=== PATIENT | female | born 1995 | race Caucasian/White ===

== ENCOUNTER 2017-06-25 08:49 | Inpatient (IN) | payer OTHER ==
[2017-06-25] MEDS ORDERED: Sodium Chloride 0.9% 10 ML Syringe FLUSH PRN (09:12)
[2017-06-25] MEDS ORDERED: Sodium Chloride 0.9% 2.5 ML Syringe FLUSH PRN (09:12)
[2017-06-25] MEDS ORDERED: Citric Acid/Sodium Citrate Solution 30 ML Cup PO SCH (09:15)
[2017-06-25] MEDS ORDERED: Oxytocin/0.9 % Sodium Chloride 30 UNIT/500 ML BAG IV SCH (09:15)
[2017-06-25] MEDS ORDERED: Octyl 2-Cyanoacrylate 1 Tube ONE (10:07)
[2017-06-25] MEDS: Lactated Ringers 1,000 ML IV SCH ×4 (10:32→21:28)
--- NOTE | 2017-06-25 10:42 | PCM.PREANE ---
Preanesthetic Assessment - Procedure Proposed Procedure: Repeat - Anesthesia/Transfusion/Family Hx Anesthesia History: Prior Anesthesia Without Reaction (last under epidural - pt denies problems) Family History of Anesthesia Reaction: No Transfusion History: No Prior Transfusion(s) Intubation History: Unknown - Review of Systems General: No Symptoms Pulmonary: No Symptoms Cardiovascular: No Symptoms Gastrointestinal: No Symptoms Neurological: No Symptoms Other: Reports: Anxiety (appears nervous/quiet) - Physical Assessment NPO Status Date: 06/25/17 NPO Status Time: 00:00 Pulse: 86 O2 Sat by Pulse Oximetry: 99 Blood Pressure: 133/80 Height: 5 ft 5 in Weight: 203 lb ASA Class: 2 Mental Status: Alert & Oriented x3 Airway Class: Mallampati = 2 Dentition: Reports: Normal Dentition Thyro-Mental Finger Breadths: 3 Mouth Opening Finger Breadths: 3 ROM/Head Extension: Full Lungs: Clear to Auscultation, Normal Respiratory Effort Cardiovascular: Regular Rate, Regular Rhythm - Lab Values: Laboratory Last Values WBC 15.20 K/uL (4.0-11.0) H 06/25/17 09:34 RBC 4.06 M/uL (4.30-5.90) L 06/25/17 09:34 Hgb 10.9 g/dL (12.0-16.0) L 06/25/17 09:34 Hct 33.7 % (36.0-46.0) L 06/25/17 09:34 MCV 83.0 fL (80.0-98.0) 06/25/17 09:34 MCH 26.8 pg (27.0-32.0) L 06/25/17 09:34 MCHC 32.3 g/dL (31.0-37.0) 06/25/17 09:34 RDW Std Deviation 49.6 fl (28.0-62.0) 06/25/17 09:34 RDW Coeff of Xi 17 % (11.0-15.0) H 06/25/17 09:34 Plt Count 209 K/uL (150-400) 06/25/17 09:34 MPV 10.30 fL (7.40-12.00) 06/25/17 09:34 Nucleated RBC % 0.0 /100WBC 06/25/17 09:34 Nucleated RBCs # 0 K/uL 06/25/17 09:34 - Allergies Allergies/Adverse Reactions: Allergies Allergy/AdvReac Type Severity Reaction Status Date / Time No Known Allergies Allergy Verified 06/21/17 09:41 - Blood Blood Available: No Product(s) Available: None (T&S pending) - Acknowledgements Anesthesia Type Planned: Spinal Pt an Appropriate Candidate for the Planned Anesthesia: Yes Alternatives and Risks of Anesthesia Discussed w Pt/Guardian: Yes Pt/Guardian Understands and Agrees with Anesthesia Plan: Yes PreAnesthesia Questionnaire HEENT History: Reports: None Other HEENT History: wears glasses Cardiovascular History: Reports: None Respiratory History: Reports: None Gastrointestinal History: Reports: None Genitourinary History: Reports: None 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: Musculoskeletal History: Reports: None Neurological History: Reports: None Psychiatric History: Reports: None Endocrine/Metabolic History: Reports: Obesity/BMI 30+ Hematologic History: Reports: None Immunologic History: Reports: None Dermatologic History: Reports: None - Infectious Disease History Infectious Disease History: Reports: Chicken Pox - Past Surgical History HEENT Surgical History: Reports: Oral Surgery Other HEENT Surgeries/Procedures: wisdom teeth removed Female Surgical History: Reports: Section - SUBSTANCE USE Smoking Status *Q: Never Smoker Tobacco Use Within Last Twelve Months: No Second Hand Smoke Exposure: No Recreational Drug Use History: No - HOME MEDS Home Medications: Home Meds PNV95/Ferrous Fumarate/FA [ Tablet] 1 tab PO DAILY 06/21/17 [History] - CURRENT (IN HOUSE) MEDS Current Meds: Current Medications Citric Acid/Sodium Citrate (Bicitra Solution) 30 ml PO .ONCE JOSE ALBERTO Lactated Ringer's (Ringers, Lactated) 1,000 mls @ 500 mls/hr IV .BOLUS JOSE ALBERTO Last Admin: 06/25/17 10:33 Dose: 500 mls/hr Oxytocin/Sodium Chloride (Oxytocin 30 Unit/500 Ml-Ns) 30 unit in 500 mls @ 250 mls/hr IV TITRATE JOSE ALBERTO Sodium Chloride (Saline Flush) 10 ml FLUSH ASDIRECTED PRN PRN Reason: Keep Vein Open Sodium Chloride (Saline Flush) 2.5 ml FLUSH ASDIRECTED PRN PRN Reason: Keep Vein Open Discontinued Medications Octyl Cyanoacrylate (Dermabond Advance) Confirm Administered Dose 1 applic .ROUTE .STK-MED ONE Stop: 06/25/17 10:08
--- NOTE | 2017-06-25 10:51 | PCM.LDHP ---
L&D History of Present Illness - General Date of Service: 06/25/17 Admit Problem/Dx: Patient Status Order with Admit Dx/Problem 06/25/17 09:06 Patient Status [ADT] Routine Admission Diagnosis/Problem Admission Diagnosis/Problem - planned Source of Information: Patient History Limitations: Reports: No Limitations - History of Present Illness Improves with: Reports: None Worsens with: Reports: None Associated Symptoms: Reports: N - Related Data Allergies/Adverse Reactions: Allergies Allergy/AdvReac Type Severity Reaction Status Date / Time No Known Allergies Allergy Verified 06/21/17 09:41 Home Medications: Home Meds PNV95/Ferrous Fumarate/FA [ Tablet] 1 tab PO DAILY 06/21/17 [History] Past Medical History HEENT History: Reports: None Other HEENT History: wears glasses Cardiovascular History: Reports: None Respiratory History: Reports: None Gastrointestinal History: Reports: None Genitourinary History: Reports: None [employer] MAN History: Reports: Musculoskeletal History: Reports: None Neurological History: Reports: None Psychiatric History: Reports: None Endocrine/Metabolic History: Reports: Obesity/BMI 30+ Hematologic History: Reports: None Immunologic History: Reports: None Dermatologic History: Reports: None - Infectious Disease History Infectious Disease History: Reports: Chicken Pox - Past Surgical History HEENT Surgical History: Reports: Oral Surgery Other HEENT Surgeries/Procedures: wisdom teeth removed Female Surgical History: Reports: Section Social & Family History - Family History Family Medical History: Noncontributory HEENT: Reports: Glaucoma, Impaired Vision OBGYN: Reports: Neurological: Reports: Seizure, Other (See Below) Other Neurological Family History: Mother of patient hit her head as a teenager and developed seizure disorder. - Tobacco Use Smoking Status *Q: Never Smoker Second Hand Smoke Exposure: No - Caffeine Use Caffeine Use: Reports: Coffee - Recreational Drug Use Recreational Drug Use: No Drug Use in Last 12 Months: No H&P Review of Systems - Review of Systems: Review Of Systems: See Below General: Reports: No Symptoms HEENT: Reports: No Symptoms Pulmonary: Reports: No Symptoms Cardiovascular: Reports: No Symptoms Gastrointestinal: Reports: No Symptoms Genitourinary: Reports: No Symptoms Musculoskeletal: Reports: No Symptoms Skin: Reports: No Symptoms Psychiatric: Reports: No Symptoms Neurological: Reports: No Symptoms Hematologic/Lymphatic: Reports: No Symptoms Immunologic: Reports: No Symptoms L&D Exam - Exam Exam: See Below - Vital Signs Vital Signs: Last Vital Signs Temp Pulse 86 06/25/17 10:42 Resp BP 133/80 06/25/17 10:42 Pulse Ox 99 06/25/17 10:42 Weight: 92.079 kg - OB Specific Fundal Height In cm: 39 Contraction Intensity: Mild Movement: Active Heart Tones: Present Presentation: Vertex - Exam General: Alert, Oriented HEENT: PERRLA, Conjunctiva Clear, EACs Clear, EOMI, Hearing Intact, Mucosa Moist & Sonterra, Nares Patent, Normal Nasal Septum, Posterior Pharynx Clear, TMs Clear Neck: Supple, Trachea Midline Lungs: Clear to Auscultation, Normal Respiratory Effort Cardiovascular: Regular Rate, Regular Rhythm GI/Abdominal Exam: Normal Bowel Sounds, Soft, Non-Tender, No Organomegaly, No Distention, No Abnormal Bruit, No Mass, Pelvis Stable Rectal Exam: Normal Exam, Normal Rectal Tone Genitourinary: Normal external exam, Normal bimanual exam, Normal speculum exam Back Exam: Normal Inspection, Full Range of Motion Extremities: Normal Inspection, Normal Range of Motion, Non-Tender, No Pedal Edema, Normal Capillary Refill Skin: Warm, Dry, Intact Neurological: Cranial Nerves Intact, Reflexes Equal Bilateral Psychiatric: Alert, Normal Affect, Normal Mood - Patient Data Lab Results Last 24 hrs: Laboratory Results - last 24 hr 06/25/17 Range/Units 09:34 WBC 15.20 H (4.0-11.0) K/uL RBC 4.06 L (4.30-5.90) M/uL Hgb 10.9 L (12.0-16.0) g/dL Hct 33.7 L (36.0-46.0) % MCV 83.0 (80.0-98.0) fL MCH 26.8 L (27.0-32.0) pg MCHC 32.3 (31.0-37.0) g/dL RDW Std Deviation 49.6 (28.0-62.0) fl RDW Coeff of Xi 17 H (11.0-15.0) % Plt Count 209 (150-400) K/uL MPV 10.30 (7.40-12.00) fL Nucleated RBC % 0.0 /100WBC Nucleated RBCs # 0 K/uL Result Diagrams: 06/25/17 09:34 Problem List Initiated/Reviewed/Updated: Yes Orders Last 24hrs: Active Orders 24 hr Category Date Time Status Patient Status [ADT] Routine ADT 06/25/17 09:06 Active Non Stress Test [RC] PER UNIT ROUTINE Care 06/25/17 09:20 Active Notify Provider Vital Signs [RC] PRN Care 06/25/17 09:06 Active Procedure Site Prep Instruct [RC] ASDIRECTED Care 06/25/17 09:20 Active Up ad Mirta [RC] ASDIRECTED Care 06/25/17 09:20 Active Verify Patient Consent Obtain [RC] ASDIRECTED Care 06/25/17 09:06 Active Vital Signs [RC] PER UNIT ROUTINE Care 06/25/17 09:20 Active TYPE AND SCREEN [BBK] Routine Lab 06/25/17 09:34 Received Citric Acid/Sodium Citrate [Bicitra Solution] Med 06/25/17 09:15 Active 30 ml PO .ONCE Lactated Ringers [Ringers, Lactated] 1,000 ml Med 06/25/17 09:15 Active IV .BOLUS Oxytocin/0.9 % Sodium Chloride [Oxytocin 30 Unit/500 ML Med 06/25/17 09:15 Active -NS] 30 unit in 500 ml IV TITRATE Sodium Chloride 0.9% [Saline Flush] Med 06/25/17 09:12 Active 10 ml FLUSH ASDIRECTED PRN Sodium Chloride 0.9% [Saline Flush] Med 06/25/17 09:12 Active 2.5 ml FLUSH ASDIRECTED PRN Peripheral IV Insertion Adult [OM.PC] Routine Oth 06/25/17 09:20 Ordered Schedule Procedure [COMM] Per Unit Routine Oth 06/25/17 09:20 Ordered Resuscitation Status Routine Resus Stat 06/25/17 09:12 Ordered Medication Orders Citric Acid/Sodium Citrate (Bicitra Solution) 30 ml PO .ONCE JOSE ALBERTO Lactated Ringer's (Ringers, Lactated) 1,000 mls @ 500 mls/hr IV .BOLUS JOSE ALBERTO Last Admin: 06/25/17 10:33 Dose: 500 mls/hr Infusion: 06/25/17 10:33 Dose: 500 mls/hr Admin: 06/25/17 10:32 Dose: 500 mls/hr Oxytocin/Sodium Chloride (Oxytocin 30 Unit/500 Ml-Ns) 30 unit in 500 mls @ 250 mls/hr IV TITRATE JOSE ALBERTO Sodium Chloride (Saline Flush) 10 ml FLUSH ASDIRECTED PRN PRN Reason: Keep Vein Open Sodium Chloride (Saline Flush) 2.5 ml FLUSH ASDIRECTED PRN PRN Reason: Keep Vein Open Assessment/Plan Comment:: Intrauterine 39+4 she is admitted for elective repeat section
[2017-06-25] MEDS ORDERED: Sodium Chloride 0.9% 20 ML ONE (11:28)
[2017-06-25] MEDS ORDERED: Oxytocin 10 Units/1 ML SDV ONE (11:28)
[2017-06-25] MEDS ORDERED: Ondansetron 4 MG/2 ML SDV ONE (11:28)
[2017-06-25] MEDS ORDERED: ceFAZolin 1 GM Vial ONE (11:28)
[2017-06-25] MEDS ORDERED: Morphine PF 10 MG/10 ML SDV ONE (11:35)
[2017-06-25] MEDS ORDERED: ceFAZolin 2 GM in Premix Bag 1 BAG IV ONE (12:00)
[2017-06-25] MEDS ORDERED: ePHEDrine 50 MG/ML SDV ONE (12:12)
[2017-06-25] MEDS ORDERED: Phenylephrine 1% 10 MG/ML SDV ONE (12:13)
[2017-06-25] MEDS ORDERED: Nalbuphine 10 MG/1 ML Vial IVPUSH PRN (13:00)
[2017-06-25] MEDS ORDERED: diphenhydrAMINE 50 MG/ML SDV IVPUSH PRN ×2 (13:00→13:04)
[2017-06-25] MEDS ORDERED: Naloxone 0.4 MG/ML Syringe IVPUSH PRN (13:00)
[2017-06-25] MEDS ORDERED: fentaNYL 100 MCG/2 ML SDV IVPUSH PRN (13:00)
[2017-06-25] MEDS ORDERED: Ondansetron 4 MG/2 ML SDV IV PRN (13:04)
[2017-06-25] MEDS ORDERED: Lanolin 100% Cream 7 GM Tube TOP PRN (13:04)
[2017-06-25] MEDS ORDERED: Acetaminophen/oxyCODONE 325-5 MG Tab PO PRN ×2 (13:04)
[2017-06-25] MEDS ORDERED: Bisacodyl 10 MG Supp RECTAL PRN (13:04)
--- NOTE | 2017-06-25 13:08 | PCM.OPNOTE ---
- General Post-Op/Procedure Note Date of Surgery/Procedure: 06/25/17 Operative Procedure(s): Repeat C/Section. Pre Op Diagnosis: IUP 39+4 pervious C/section Post-Op Diagnosis: Same Anesthesia Technique: Spinal Primary Surgeon: Donato Muñoz Rice Field Worker: Shana Winters Complications: None Condition: Good Free Text/Narrative:: Intake & Output 06/24/17 06/25/17 06/25/17 22:59 06:59 14:59 Output Total 100 Balance -100
--- NOTE | 2017-06-25 13:27 | PCM.POSTAN ---
POST ANESTHESIA ASSESSMENT - MENTAL STATUS Mental Status: Alert, Oriented - VITAL SIGNS Blood Pressure: 95/51 - RESPIRATORY Respiratory Status: Respiratory Rate WNL, Airway Patent, O2 Saturation Stable - CARDIOVASCULAR CV Status: Pulse Rate WNL, Blood Pressure Stable - GASTROINTESTINAL GI Status: No Symptoms - PAIN Pain Score: 0 (spinal still intact) - POST OP HYDRATION Hydration Status: Adequate & Stable
[2017-06-25] MEDS: Ketorolac 30 MG/ML SDV IVPUSH SCH ×2 (13:35→19:25)
--- NOTE | 2017-06-25 14:17 | OR ---
SURGEON: Donato Muñoz MD DATE OF PROCEDURE: 06/25/2017 PREOPERATIVE DIAGNOSIS: Intrauterine at 39+ four, previous section, admitted for elective repeat section. POSTOPERATIVE DIAGNOSIS: Intrauterine at 39+ four, previous section, admitted for elective repeat section. OPERATION PERFORMED: Repeat low transverse section. MEMBER CERTIFICATION MANAGER: Shana Winters CNM. ANESTHESIA: Spinal, Mr. Evangelista Kiser. ESTIMATED BLOOD LOSS: 700 mL. COMPLICATIONS: None. FINDINGS: Male fetus. score reported to be 7 and 9. Normal uterus, tubes, and ovaries. INDICATIONS FOR SURGERY: This patient had a previous section. She is term. She is admitted for elective repeat section. PROCEDURE IN DETAIL: The patient was brought to the OR, properly identified, and after adequate level of spinal anesthesia, the patient was prepped and draped in sterile fashion as usual. Cuevas catheter was inserted and time-out was taken, and then low transverse Pfannenstiel skin incision was done through the old scar of the rectus. The Heron's fascia and rectus fascia were opened in direction of the incision. The 2 recti muscles were and peritoneal cavity was entered. Bladder flap was raised in the usual manner pushing the bladder away from the lower uterine segment. Low transverse uterine incision was done and extended manually with the hand. Fetus was in a vertex position, delivered without any problem, cried immediately. Later on, score reported to be 7 and 9. The weight was not available. The placenta delivered spontaneous, complete, and intact and repair of the lower uterine segment was done with 2-0 Vicryl continuous interlocking in 2 layers. Reperitonealization done with 3-0 Vicryl continuous. Inspection of the incision of the lower uterine segment shows no oozing, no bleeding. The peritoneal cavity evacuated completely from all blood and blood clot and closed with 3-0 Vicryl continuous, and the rectus fascia was closed with a #1 PDS double strand continuous, the Heron's fascia with 3-0 Vicryl continuous, and the skin closed with 3-0 Vicryl on a Maikol needle in a subcuticular fashion. Instrument and sponge count was correct. The patient tolerated the procedure well, went to recovery room in stable general condition. VLAD / CHAYITO /[id number]
[2017-06-25] MEDS: Docusate Sodium 100 MG Cap PO SCH (20:11)
[2017-06-26] MEDS: Ketorolac 30 MG/ML SDV IVPUSH SCH ×3 (01:11→12:50)
[2017-06-26] MEDS: Lactated Ringers 1,000 ML IV SCH (03:38)
--- NOTE | 2017-06-26 07:20 | PCM48HPAN ---
Post Anesthesia Note - EVALUATION WITHIN 48HRS OF ANESTHETIC Vital Signs in Normal Range: Yes Patient Participated in Evaluation: Yes Respiratory Function Stable: Yes Airway Patent: Yes Cardiovascular Function Stable: Yes Hydration Status Stable: Yes Pain Control Satisfactory: Yes Nausea and Vomiting Control Satisfactory: Yes (episode of nausea overnight) Mental Status Recovered: Yes - COMMENTS/OBSERVATIONS Free Text/Narrative:: No anesthesia complications.
--- NOTE | 2017-06-26 08:14 | PCM.PNPP ---
- General Info Date of Service: 06/26/17 Admission Dx/Problem (Free Text): Patient Status Order with Admit Dx/Problem 06/25/17 09:06 Patient Status [ADT] Routine Admission Diagnosis/Problem Admission Diagnosis/Problem - planned Functional Status: Reports: Pain Controlled, Tolerating Diet, Ambulating - Review of Systems General: Reports: No Symptoms HEENT: Reports: No Symptoms Pulmonary: Reports: No Symptoms Cardiovascular: Reports: No Symptoms Gastrointestinal: Reports: No Symptoms Genitourinary: Reports: No Symptoms Musculoskeletal: Reports: No Symptoms Skin: Reports: No Symptoms Neurological: Reports: No Symptoms Psychiatric: Reports: No Symptoms - Patient Data Vital Signs - Most Recent: Last Vital Signs Temp 36.6 C 06/26/17 04:00 Pulse 97 06/26/17 04:00 Resp 16 06/26/17 06:00 BP 113/61 06/26/17 04:00 Pulse Ox 95 06/26/17 06:00 Weight - Most Recent: 92.079 kg I&O - Last 24 Hours: Intake & Output 06/25/17 06/26/17 06/26/17 22:59 06:59 14:59 Intake Total 1667 Output Total 500 250 Balance -500 1417 Lab Results - Last 24 Hours: Laboratory Results - last 24 hr 06/25/17 06/25/17 06/26/17 Range/Units 09:34 09:34 05:24 WBC 15.20 H (4.0-11.0) K/uL RBC 4.06 L (4.30-5.90) M/uL Hgb 10.9 L 8.6 L (12.0-16.0) g/dL Hct 33.7 L 27.2 L (36.0-46.0) % MCV 83.0 (80.0-98.0) fL MCH 26.8 L (27.0-32.0) pg MCHC 32.3 (31.0-37.0) g/dL RDW Std Deviation 49.6 (28.0-62.0) fl RDW Coeff of Xi 17 H (11.0-15.0) % Plt Count 209 (150-400) K/uL MPV 10.30 (7.40-12.00) fL Nucleated RBC % 0.0 /100WBC Nucleated RBCs # 0 K/uL Blood Type A POSITIVE Antibody Screen NEGATIVE Med Orders - Current: Current Medications Bisacodyl (Dulcolax) 10 mg RECTAL .ONCE PRN PRN Reason: Constipation Citric Acid/Sodium Citrate (Bicitra Solution) 30 ml PO .ONCE [facility] Last Admin: 06/25/17 11:50 Dose: 30 ml Diphenhydramine HCl (Benadryl) 25 mg IVPUSH Q4H PRN PRN Reason: Itching Stop: 06/26/17 13:00 Diphenhydramine HCl (Benadryl) 25 mg IVPUSH Q6H PRN PRN Reason: Itching or Nausea Docusate Sodium (Colace) 100 mg PO BID [facility] Last Admin: 06/25/17 20:11 Dose: 100 mg Emollient Ointment (Lansinoh Hpa) 0 gm TOP ASDIRECTED PRN PRN Reason: Sore Nipples Fentanyl (Sublimaze) 50 mcg IVPUSH Q45M PRN PRN Reason: Pain (severe 7-10) Stop: 06/26/17 13:01 Lactated Ringer's (Ringers, Lactated) 1,000 mls @ 500 mls/hr IV .BOLUS [facility] Last Admin: 06/25/17 11:50 Dose: 125 mls/hr Oxytocin/Sodium Chloride (Oxytocin 30 Unit/500 Ml-Ns) 30 unit in 500 mls @ 250 mls/hr IV TITRATE [facility] Lactated Ringer's (Ringers, Lactated) 1,000 mls @ 125 mls/hr IV ASDIRECTED [facility] Last Admin: 06/26/17 03:38 Dose: 125 mls/hr Ibuprofen (Motrin) 800 mg PO Q8H PRN PRN Reason: mild pain or fever Ketorolac Tromethamine (Toradol) 30 mg IVPUSH Q6H [facility] Stop: 06/26/17 13:16 Last Admin: 06/26/17 07:08 Dose: 30 mg Nalbuphine HCl (Nubain) 5 mg IVPUSH Q3H PRN PRN Reason: Pruritis Stop: 06/26/17 13:00 Naloxone HCl (Narcan) 0.1 mg IVPUSH ONETIME PRN PRN Reason: Respiratory Depression Stop: 06/26/17 13:01 Ondansetron HCl (Zofran) 4 mg IV Q4H PRN PRN Reason: Nausea/Vomiting Last Admin: 06/25/17 18:51 Dose: 4 mg Oxycodone/Acetaminophen (Percocet 325-5 Mg) 1 tab PO Q4H PRN PRN Reason: Pain (moderate 4-6) Oxycodone/Acetaminophen (Percocet 325-5 Mg) 2 tab PO Q4H PRN PRN Reason: Pain (moderate 4-6) Sodium Chloride (Saline Flush) 10 ml FLUSH ASDIRECTED PRN PRN Reason: Keep Vein Open Sodium Chloride (Saline Flush) 2.5 ml FLUSH ASDIRECTED PRN PRN Reason: Keep Vein Open Discontinued Medications Cefazolin Sodium (Ancef) Confirm Administered Dose 2 gm .ROUTE .STK-MED ONE Stop: 06/25/17 11:29 Ephedrine Sulfate (Ephedrine Sulfate) Confirm Administered Dose 50 mg .ROUTE .STK-MED ONE Stop: 06/25/17 12:13 Cefazolin Sodium/Dextrose 2 gm (/ Premix) 50 mls @ 100 mls/hr IV ONETIME ONE Stop: 06/25/17 12:29 Last Admin: 06/25/17 22:45 Dose: Not Given Sodium Chloride (Normal Saline) Confirm Administered Dose 20 mls @ as directed .ROUTE .STK-MED ONE Stop: 06/25/17 11:29 Morphine Sulfate (Duramorph Pf) Confirm Administered Dose 10 mg .ROUTE .STK-MED ONE Stop: 06/25/17 11:36 Octyl Cyanoacrylate (Dermabond Advance) Confirm Administered Dose 1 applic .ROUTE .STK-MED ONE Stop: 06/25/17 10:08 Ondansetron HCl (Zofran) Confirm Administered Dose 4 mg .ROUTE .STK-MED ONE Stop: 06/25/17 11:29 Oxytocin (Pitocin) Confirm Administered Dose 20 unit .ROUTE .STK-MED ONE Stop: 06/25/17 11:29 Phenylephrine HCl (Ganga-Synephrine) Confirm Administered Dose 10 mg .ROUTE .STK- MED ONE Stop: 06/25/17 12:14 - Interaction Disposition, : [place] to Nursery Interaction: Unable to Hold Infant at this Time Feeding: Bottle Fed Infant Support Person: Significant Other - Recovery Exam Fundal Tone: Firm Fundal Level: 1 Fingerbreadths Below Umbilicus Fundal Placement: Midline Lochia Amount: Scant Lochia Color: Rubra/Red Bladder Status: Indwelling Catheter in Place Urinary Elimination: Indwelling Catheter - Exam General: Alert, Oriented, Cooperative, No Acute Distress Lungs: Clear to Auscultation, Normal Respiratory Effort Cardiovascular: Regular Rate, Regular Rhythm, No Murmurs GI/Abdominal Exam: Soft Extremities: Normal Range of Motion, Non-Tender, No Pedal Edema, Normal Capillary Refill Skin: Warm, Dry, Intact Wound/Incisions: Dressing Dry and Intact Neurological: No New Focal Deficit, Normal Speech, Normal Tone Psy/Mental Status: Alert, Normal Affect, Normal Mood - Problem List & Annotations (1) Status post delivery SNOMED Code(s): 668523394 Code(s): Z98.891 - HISTORY OF UTERINE SCAR FROM PREVIOUS SURGERY Status: Acute Priority: High Current Visit: Yes - Problem List Review Problem List Initiated/Reviewed/Updated: Yes - Assessment Assessment:: PP day 1 VSS, AF, lochia small, dressing intact no drainage noted, Stable - Plan Plan:: Intrauterine 39+4 she is admitted for elective repeat section PP day 1 continue pp plan of care
--- NOTE | 2017-06-26 08:58 | PCM.SURGPN ---
- General Info POD#: 1 Functional Status: Reports: Pain Controlled - Review of Systems General: Reports: No Symptoms HEENT: Reports: No Symptoms Pulmonary: Reports: No Symptoms Cardiovascular: Reports: No Symptoms Gastrointestinal: Reports: No Symptoms Genitourinary: Reports: No Symptoms Musculoskeletal: Reports: No Symptoms Skin: Reports: No Symptoms Neurological: Reports: No Symptoms Psychiatric: Reports: No Symptoms - Patient Data Vitals - Most Recent: Last Vital Signs Temp 36.6 C 06/26/17 04:00 Pulse 97 06/26/17 04:00 Resp 16 06/26/17 06:00 BP 113/61 06/26/17 04:00 Pulse Ox 95 06/26/17 06:00 Weight - Most Recent: 92.079 kg I&O - Last 24 Hours: Intake & Output 06/25/17 06/26/17 06/26/17 22:59 06:59 14:59 Intake Total 1667 Output Total 500 250 Balance -500 1417 Lab Results Last 24 Hrs: Laboratory Results - last 24 hr 06/25/17 06/25/17 06/26/17 Range/Units 09:34 09:34 05:24 WBC 15.20 H (4.0-11.0) K/uL RBC 4.06 L (4.30-5.90) M/uL Hgb 10.9 L 8.6 L (12.0-16.0) g/dL Hct 33.7 L 27.2 L (36.0-46.0) % MCV 83.0 (80.0-98.0) fL MCH 26.8 L (27.0-32.0) pg MCHC 32.3 (31.0-37.0) g/dL RDW Std Deviation 49.6 (28.0-62.0) fl RDW Coeff of Xi 17 H (11.0-15.0) % Plt Count 209 (150-400) K/uL MPV 10.30 (7.40-12.00) fL Nucleated RBC % 0.0 /100WBC Nucleated RBCs # 0 K/uL Blood Type A POSITIVE Antibody Screen NEGATIVE Med Orders - Current: Current Medications Bisacodyl (Dulcolax) 10 mg RECTAL .ONCE PRN PRN Reason: Constipation Citric Acid/Sodium Citrate (Bicitra Solution) 30 ml PO .ONCE JOSE ALBERTO Last Admin: 06/25/17 11:50 Dose: 30 ml Diphenhydramine HCl (Benadryl) 25 mg IVPUSH Q4H PRN PRN Reason: Itching Stop: 06/26/17 13:00 Diphenhydramine HCl (Benadryl) 25 mg IVPUSH Q6H PRN PRN Reason: Itching or Nausea Docusate Sodium (Colace) 100 mg PO BID [facility] Last Admin: 06/25/17 20:11 Dose: 100 mg Emollient Ointment (Lansinoh Hpa) 0 gm TOP ASDIRECTED PRN PRN Reason: Sore Nipples Fentanyl (Sublimaze) 50 mcg IVPUSH Q45M PRN PRN Reason: Pain (severe 7-10) Stop: 06/26/17 13:01 Lactated Ringer's (Ringers, Lactated) 1,000 mls @ 500 mls/hr IV .BOLUS [facility] Last Admin: 06/25/17 11:50 Dose: 125 mls/hr Oxytocin/Sodium Chloride (Oxytocin 30 Unit/500 Ml-Ns) 30 unit in 500 mls @ 250 mls/hr IV TITRATE [facility] Lactated Ringer's (Ringers, Lactated) 1,000 mls @ 125 mls/hr IV ASDIRECTED [facility] Last Admin: 06/26/17 03:38 Dose: 125 mls/hr Ibuprofen (Motrin) 800 mg PO Q8H PRN PRN Reason: mild pain or fever Ketorolac Tromethamine (Toradol) 30 mg IVPUSH Q6H [facility] Stop: 06/26/17 13:16 Last Admin: 06/26/17 07:08 Dose: 30 mg Nalbuphine HCl (Nubain) 5 mg IVPUSH Q3H PRN PRN Reason: Pruritis Stop: 06/26/17 13:00 Naloxone HCl (Narcan) 0.1 mg IVPUSH ONETIME PRN PRN Reason: Respiratory Depression Stop: 06/26/17 13:01 Ondansetron HCl (Zofran) 4 mg IV Q4H PRN PRN Reason: Nausea/Vomiting Last Admin: 06/25/17 18:51 Dose: 4 mg Oxycodone/Acetaminophen (Percocet 325-5 Mg) 1 tab PO Q4H PRN PRN Reason: Pain (moderate 4-6) Oxycodone/Acetaminophen (Percocet 325-5 Mg) 2 tab PO Q4H PRN PRN Reason: Pain (moderate 4-6) Sodium Chloride (Saline Flush) 10 ml FLUSH ASDIRECTED PRN PRN Reason: Keep Vein Open Sodium Chloride (Saline Flush) 2.5 ml FLUSH ASDIRECTED PRN PRN Reason: Keep Vein Open Discontinued Medications Cefazolin Sodium (Ancef) Confirm Administered Dose 2 gm .ROUTE .STK-MED ONE Stop: 06/25/17 11:29 Ephedrine Sulfate (Ephedrine Sulfate) Confirm Administered Dose 50 mg .ROUTE .STK-MED ONE Stop: 06/25/17 12:13 Cefazolin Sodium/Dextrose 2 gm (/ Premix) 50 mls @ 100 mls/hr IV ONETIME ONE Stop: 06/25/17 12:29 Last Admin: 06/25/17 22:45 Dose: Not Given Sodium Chloride (Normal Saline) Confirm Administered Dose 20 mls @ as directed .ROUTE .STK-MED ONE Stop: 06/25/17 11:29 Morphine Sulfate (Duramorph Pf) Confirm Administered Dose 10 mg .ROUTE .STK-MED ONE Stop: 06/25/17 11:36 Octyl Cyanoacrylate (Dermabond Advance) Confirm Administered Dose 1 applic .ROUTE .STK-MED ONE Stop: 06/25/17 10:08 Ondansetron HCl (Zofran) Confirm Administered Dose 4 mg .ROUTE .STK-MED ONE Stop: 06/25/17 11:29 Oxytocin (Pitocin) Confirm Administered Dose 20 unit .ROUTE .STK-MED ONE Stop: 06/25/17 11:29 Phenylephrine HCl (Ganga-Synephrine) Confirm Administered Dose 10 mg .ROUTE .STK- MED ONE Stop: 06/25/17 12:14 - Exam Wound/Incisions: Healing Well General: Alert, Oriented HEENT: Pupils Equal Neck: Supple Lungs: Clear to Auscultation, Normal Respiratory Effort Cardiovascular: Regular Rate, Regular Rhythm GI/Abdominal Exam: Normal Bowel Sounds, Soft, Non-Tender, No Organomegaly, No Distention, No Abnormal Bruit, No Mass, Pelvis Stable Extremities: Normal Inspection, Normal Range of Motion, Non-Tender, No Pedal Edema, Normal Capillary Refill Skin: Warm, Dry, Intact Neurological: No New Focal Deficit Psy/Mental Status: Alert, Normal Affect, Normal Mood - Problem List Review Problem List Initiated/Reviewed/Updated: Yes - My Orders Last 24 Hours: Active Orders 24 hr Category Date Time Status Patient Status [ADT] Routine ADT 06/25/17 13:04 Active Ambulate [RC] PER UNIT ROUTINE Care 06/25/17 13:04 Active Antiembolic Devices [RC] PER UNIT ROUTINE Care 06/25/17 13:05 Active Bradycardia-Neuroaxis [employer] [RC] ROUTINE Care 06/25/17 13:00 Active Communication Order [RC] PER UNIT ROUTINE Care 06/25/17 13:04 Active Hypertension-Neuroaxis [employer] [RC] ROUTINE Care 06/25/17 13:00 Active Hypotension-Neuroaxis [employer] [RC] ROUTINE Care 06/25/17 13:00 Active May Shower [RC] ASDIRECTED Care 06/25/17 13:04 Active Notify Provider Vital Signs [RC] PRN Care 06/25/17 09:06 Active Oxygen Therapy [RC] PER UNIT ROUTINE Care 06/25/17 13:00 Active RT Incentive Spirometry [RC] Q2HWA Care 06/25/17 13:04 Active Up ad Mirta [RC] ASDIRECTED Care 06/25/17 09:20 Active Vital Signs [RC] Q1H Care 06/25/17 13:00 Active Acetaminophen/oxyCODONE [Percocet 325-5 MG] Med 06/25/17 13:04 Active 1 tab PO Q4H PRN Acetaminophen/oxyCODONE [Percocet 325-5 MG] Med 06/25/17 13:04 Active 2 tab PO Q4H PRN Bisacodyl [Dulcolax] Med 06/25/17 13:04 Active 10 mg RECTAL .ONCE PRN Citric Acid/Sodium Citrate [Bicitra Solution] Med 06/25/17 09:15 Active 30 ml PO .ONCE Docusate Sodium [Colace] Med 06/25/17 21:00 Active 100 mg PO BID Ibuprofen [Motrin] Med 06/25/17 13:04 Active 800 mg PO Q8H PRN Ketorolac [Toradol] Med 06/25/17 13:15 Active 30 mg IVPUSH Q6H Lactated Ringers [Ringers, Lactated] 1,000 ml Med 06/25/17 09:15 Active IV .BOLUS Lactated Ringers [Ringers, Lactated] 1,000 ml Med 06/25/17 13:15 Active IV ASDIRECTED Lanolin [Lansinoh HPA] Med 06/25/17 13:04 Active See Dose Instructions TOP ASDIRECTED PRN Nalbuphine [Nubain] Med 06/25/17 13:00 Active 5 mg IVPUSH Q3H PRN Naloxone [Narcan] Med 06/25/17 13:00 Active 0.1 mg IVPUSH ONETIME PRN Ondansetron [Zofran] Med 06/25/17 13:04 Active 4 mg IV Q4H PRN Oxytocin/0.9 % Sodium Chloride [Oxytocin 30 Unit/500 ML Med 06/25/17 09:15 Active -NS] 30 unit in 500 ml IV TITRATE Sodium Chloride 0.9% [Saline Flush] Med 06/25/17 09:12 Active 10 ml FLUSH ASDIRECTED PRN Sodium Chloride 0.9% [Saline Flush] Med 06/25/17 09:12 Active 2.5 ml FLUSH ASDIRECTED PRN diphenhydrAMINE [Benadryl] Med 06/25/17 13:00 Active 25 mg IVPUSH Q4H PRN diphenhydrAMINE [Benadryl] Med 06/25/17 13:04 Active 25 mg IVPUSH Q6H PRN fentaNYL [Sublimaze] Med 06/25/17 13:00 Active 50 mcg IVPUSH Q45M PRN AN Neuroaxis [employer] Precaution Reflex [OM.PC] PER Ot 06/25/17 13:00 Ordered UNIT ROUTINE AN Neuroaxis [employer] Precaution Reflex [OM.PC] PER Ot 06/26/17 13:00 Ordered UNIT ROUTINE Assess Lochia [WOMSER] Per Unit Routine Ot 06/25/17 13:04 Ordered Assess Uterine Involution [WOMSER] Per Unit Routine Ot 06/25/17 13:04 Ordered Breast Pump [WOMSER] Per Unit Routine Ot 06/25/17 13:04 Ordered Peripheral IV Discontinue [OM.PC] Routine Ot 06/25/17 13:04 Ordered Peripheral IV Insertion Adult [OM.PC] Routine Ot 06/25/17 09:20 Ordered Schedule Procedure [COMM] Per Unit Routine Ot 06/25/17 09:20 Ordered Sequential Compression Device [OM.PC] Per Unit Routine Oth 06/25/17 13:04 Ordered Resuscitation Status Routine Resus Stat 06/25/17 09:12 Ordered Medication Orders Bisacodyl (Dulcolax) 10 mg RECTAL .ONCE PRN PRN Reason: Constipation Citric Acid/Sodium Citrate (Bicitra Solution) 30 ml PO .ONCE [facility] Last Admin: 06/25/17 11:50 Dose: 30 ml Diphenhydramine HCl (Benadryl) 25 mg IVPUSH Q4H PRN PRN Reason: Itching Stop: 06/26/17 13:00 Diphenhydramine HCl (Benadryl) 25 mg IVPUSH Q6H PRN PRN Reason: Itching or Nausea Docusate Sodium (Colace) 100 mg PO BID [facility] Last Admin: 06/25/17 20:11 Dose: 100 mg Emollient Ointment (Lansinoh Hpa) 0 gm TOP ASDIRECTED PRN PRN Reason: Sore Nipples Fentanyl (Sublimaze) 50 mcg IVPUSH Q45M PRN PRN Reason: Pain (severe 7-10) Stop: 06/26/17 13:01 Lactated Ringer's (Ringers, Lactated) 1,000 mls @ 500 mls/hr IV .BOLUS [facility] Last Admin: 06/25/17 11:50 Dose: 125 mls/hr Infusion: 06/25/17 11:50 Dose: 500 mls/hr Admin: 06/25/17 10:33 Dose: 500 mls/hr Infusion: 06/25/17 10:33 Dose: 500 mls/hr Admin: 06/25/17 10:32 Dose: 500 mls/hr Oxytocin/Sodium Chloride (Oxytocin 30 Unit/500 Ml-Ns) 30 unit in 500 mls @ 250 mls/hr IV TITRATE [facility] Lactated Ringer's (Ringers, Lactated) 1,000 mls @ 125 mls/hr IV ASDIRECTED [facility] Last Admin: 06/26/17 03:38 Dose: 125 mls/hr Infusion: 06/26/17 03:38 Dose: 125 mls/hr Admin: 06/25/17 21:28 Dose: 125 mls/hr Ibuprofen (Motrin) 800 mg PO Q8H PRN PRN Reason: mild pain or fever Ketorolac Tromethamine (Toradol) 30 mg IVPUSH Q6H [facility] Stop: 06/26/17 13:16 Last Admin: 06/26/17 07:08 Dose: 30 mg Admin: 06/26/17 01:11 Dose: 30 mg Admin: 06/25/17 19:25 Dose: 30 mg Admin: 06/25/17 13:35 Dose: 30 mg Nalbuphine HCl (Nubain) 5 mg IVPUSH Q3H PRN PRN Reason: Pruritis Stop: 06/26/17 13:00 Naloxone HCl (Narcan) 0.1 mg IVPUSH ONETIME PRN PRN Reason: Respiratory Depression Stop: 06/26/17 13:01 Ondansetron HCl (Zofran) 4 mg IV Q4H PRN PRN Reason: Nausea/Vomiting Last Admin: 06/25/17 18:51 Dose: 4 mg Oxycodone/Acetaminophen (Percocet 325-5 Mg) 1 tab PO Q4H PRN PRN Reason: Pain (moderate 4-6) Oxycodone/Acetaminophen (Percocet 325-5 Mg) 2 tab PO Q4H PRN PRN Reason: Pain (moderate 4-6) Sodium Chloride (Saline Flush) 10 ml FLUSH ASDIRECTED PRN PRN Reason: Keep Vein Open Sodium Chloride (Saline Flush) 2.5 ml FLUSH ASDIRECTED PRN PRN Reason: Keep Vein Open - Assessment Assessment (Free Text/Narrative):: Status post repeat section doing well postoperative day #1 ambulatory on regular diet and voiding freely without any problem the incision clean dry no sign of infection - Plan Plan (Free Text/Narrative):: Regular care will
[2017-06-26] MEDS ORDERED: Docusate Sodium 100 MG Cap ONE (11:13)
[2017-06-26] MEDS: Docusate Sodium 100 MG Cap PO SCH ×2 (11:19→20:52)
[2017-06-26] MEDS: Ibuprofen 800 MG Tab PO PRN (22:58)
--- NOTE | 2017-06-27 06:32 | PCM.DCSUM1 ---
Discharge Summary - Hospital Course Free Text/Narrative:: Discharge home with , follow up in 10 days for incision check and 6 weeks for post or sooner if needed. - Discharge Data Discharge Date: 06/27/17 Discharge Disposition: Home, Self-Care 01 Condition: Good - Discharge Diagnosis/Problem(s) (1) Status post delivery SNOMED Code(s): 966871036 ICD Code: Z98.891 - HISTORY OF UTERINE SCAR FROM PREVIOUS SURGERY Status: Acute Priority: High Current Visit: Yes - Patient Summary/Data Operative Procedure(s) Performed: Repeat C/Section. - Patient Instructions Diet: Usual Diet as Tolerated Activity: As Tolerated, No Strenuous Activities, Rest and Relax Today Driving: May Drive Today Showering/Bathing: May Shower Wound/Incision Care: Keep Operative Site/Wound Site Clean and Dry Notify Provider of: Fever, Increased Pain, Swelling and Redness, Drainage, Nausea and/or Vomiting Other/Special Instructions: Discharge home with infant, follow up in 10 days for incision check and 6 weeks for post or sooner if needed. - Discharge Plan Home Medications: Home Meds PNV95/Ferrous Fumarate/FA [ Tablet] 1 tab PO DAILY 06/21/17 [History] Referrals: [facility] [Outside] Donato Muñoz MD [Physician] - (2 week- July 08 @ 9:30am w/ Dr. Muñoz week- August 05 @ 10:45am w/ Dr. Muñoz ) - General Info Date of Service: 06/27/17 Admission Dx/Problem (Free Text: Patient Status Order with Admit Dx/Problem 06/25/17 09:06 Patient Status [ADT] Routine Admission Diagnosis/Problem Admission Diagnosis/Problem - planned Functional Status: Reports: Pain Controlled, Tolerating Diet, Ambulating, Urinating - Review of Systems General: Reports: No Symptoms HEENT: Reports: No Symptoms Pulmonary: Reports: No Symptoms Cardiovascular: Reports: No Symptoms Gastrointestinal: Reports: No Symptoms Genitourinary: Reports: No Symptoms Musculoskeletal: Reports: No Symptoms Skin: Reports: No Symptoms Neurological: Reports: No Symptoms Psychiatric: Reports: No Symptoms - Patient Data Vitals - Most Recent: Last Vital Signs Temp 37.1 C 06/27/17 00:00 Pulse 104 H 06/27/17 00:00 Resp 16 06/27/17 00:00 BP 116/76 06/27/17 00:00 Pulse Ox 95 06/27/17 00:00 Weight - Most Recent: 92.079 kg I&O - Last 24 hours: Intake & Output 06/26/17 06/26/17 06/27/17 14:59 22:59 06:59 Intake Total 900 Output Total 1300 Balance -400 Med Orders - Current: Current Medications Bisacodyl (Dulcolax) 10 mg RECTAL .ONCE PRN PRN Reason: Constipation Citric Acid/Sodium Citrate (Bicitra Solution) 30 ml PO .ONCE [facility] Last Admin: 06/25/17 11:50 Dose: 30 ml Diphenhydramine HCl (Benadryl) 25 mg IVPUSH Q6H PRN PRN Reason: Itching or Nausea Docusate Sodium (Colace) 100 mg PO BID [facility] Last Admin: 06/26/17 20:52 Dose: 100 mg Emollient Ointment (Lansinoh Hpa) 0 gm TOP ASDIRECTED PRN PRN Reason: Sore Nipples Last Admin: 06/26/17 16:34 Dose: 7 gm Lactated Ringer's (Ringers, Lactated) 1,000 mls @ 500 mls/hr IV .BOLUS [facility] Last Admin: 06/25/17 11:50 Dose: 125 mls/hr Oxytocin/Sodium Chloride (Oxytocin 30 Unit/500 Ml-Ns) 30 unit in 500 mls @ 250 mls/hr IV TITRATE [facility] Lactated Ringer's (Ringers, Lactated) 1,000 mls @ 125 mls/hr IV ASDIRECTED [facility] Last Admin: 06/26/17 03:38 Dose: 125 mls/hr Ibuprofen (Motrin) 800 mg PO Q8H PRN PRN Reason: mild pain or fever Last Admin: 06/26/17 22:58 Dose: 800 mg Ondansetron HCl (Zofran) 4 mg IV Q4H PRN PRN Reason: Nausea/Vomiting Last Admin: 06/25/17 18:51 Dose: 4 mg Oxycodone/Acetaminophen (Percocet 325-5 Mg) 1 tab PO Q4H PRN PRN Reason: Pain (moderate 4-6) Oxycodone/Acetaminophen (Percocet 325-5 Mg) 2 tab PO Q4H PRN PRN Reason: Pain (moderate 4-6) Last Admin: 06/26/17 16:33 Dose: 2 tab Sodium Chloride (Saline Flush) 10 ml FLUSH ASDIRECTED PRN PRN Reason: Keep Vein Open Sodium Chloride (Saline Flush) 2.5 ml FLUSH ASDIRECTED PRN PRN Reason: Keep Vein Open Discontinued Medications Cefazolin Sodium (Ancef) Confirm Administered Dose 2 gm .ROUTE .STK-MED ONE Stop: 06/25/17 11:29 Diphenhydramine HCl (Benadryl) 25 mg IVPUSH Q4H PRN PRN Reason: Itching Stop: 06/26/17 13:00 Docusate Sodium (Colace) Confirm Administered Dose 100 mg .ROUTE .STK-MED ONE Stop: 06/26/17 11:14 Last Admin: 06/26/17 20:53 Dose: Not Given Ephedrine Sulfate (Ephedrine Sulfate) Confirm Administered Dose 50 mg .ROUTE .STK-MED ONE Stop: 06/25/17 12:13 Fentanyl (Sublimaze) 50 mcg IVPUSH Q45M PRN PRN Reason: Pain (severe 7-10) Stop: 06/26/17 13:01 Cefazolin Sodium/Dextrose 2 gm (/ Premix) 50 mls @ 100 mls/hr IV ONETIME ONE Stop: 06/25/17 12:29 Last Admin: 06/25/17 22:45 Dose: Not Given Sodium Chloride (Normal Saline) Confirm Administered Dose 20 mls @ as directed .ROUTE .STK-MED ONE Stop: 06/25/17 11:29 Ketorolac Tromethamine (Toradol) 30 mg IVPUSH Q6H [facility]ERTO Stop: 06/26/17 13:16 Last Admin: 06/26/17 12:50 Dose: 30 mg Morphine Sulfate (Duramorph Pf) Confirm Administered Dose 10 mg .ROUTE .STK-MED ONE Stop: 06/25/17 11:36 Nalbuphine HCl (Nubain) 5 mg IVPUSH Q3H PRN PRN Reason: Pruritis Stop: 06/26/17 13:00 Naloxone HCl (Narcan) 0.1 mg IVPUSH ONETIME PRN PRN Reason: Respiratory Depression Stop: 06/26/17 13:01 Octyl Cyanoacrylate (Dermabond Advance) Confirm Administered Dose 1 applic .ROUTE .STK-MED ONE Stop: 06/25/17 10:08 Ondansetron HCl (Zofran) Confirm Administered Dose 4 mg .ROUTE .STK-MED ONE Stop: 06/25/17 11:29 Oxytocin (Pitocin) Confirm Administered Dose 20 unit .ROUTE .STK-MED ONE Stop: 06/25/17 11:29 Phenylephrine HCl (Gnaga-Synephrine) Confirm Administered Dose 10 mg .ROUTE .[facility] ONE Stop: 06/25/17 12:14 - Exam General: Reports: Alert, Oriented, Cooperative, No Acute Distress Lungs: Reports: Clear to Auscultation, Normal Respiratory Effort Cardiovascular: Reports: Regular Rate, Regular Rhythm, No Murmurs GI/Abdominal Exam: Soft, Non-Tender (Female) Exam: Vaginal Bleeding Rectal (Female) Exam: Deferred Back Exam: Reports: Full Range of Motion Extremities: Normal Range of Motion, Non-Tender, No Pedal Edema, Normal Capillary Refill Skin: Reports: Warm, Dry, Intact Wound/Incisions: Reports: Healing Well, No Drainage Neurological: Reports: No New Focal Deficit, Normal Speech, Normal Tone Psy/Mental Status: Reports: Alert, Normal Affect, Normal Mood *Q Meaningful Use (DIS) - VTE *Q VTE Criteria *Q: - Stroke *Q Stroke Criteria *Q: - AMI *Q AMI Criteria *Q:
[2017-06-27 13:14] VITALS: BP 129/76
[2017-06-27] MEDS: Ibuprofen 800 MG Tab PO PRN (14:03)
== END 2017-06-27 14:30 | disposition home or self-care (01) | DRG 766 ==
LOC: MW.OB 08:49
PROVIDERS: ADMIT Obstetrics & Gynecology; ATTEND Obstetrics & Gynecology
PROC: 10D00Z1 Extraction of Products of Conception, Low, Open Approach (ICD-10-PCS; principal; 2017-06-25)
DX: O34.211 Maternal care for low transverse scar from previous cesarean delivery (principal); Z3A.39 39 weeks gestation of pregnancy; Z37.0 Single live birth
CPT/HCPCS: 01961; 36415; 59025; 85014; 85018; 85027; 86850; 86900; 86901; A9270-GY; J0690; J1885; J2270; J2370; J2405; J2590; J7120

== ENCOUNTER 2022-12-28 18:09 | Emergency (ER) | payer SELFPAY ==
[2022-12-28] MEDS ORDERED: Sodium Chloride 0.9% 2.5 ML Syringe FLUSH PRN (18:38)
[2022-12-28] MEDS ORDERED: Sodium Chloride 0.9% 1,000 ML IV ONE (18:38)
[2022-12-28] MEDS ORDERED: Sodium Chloride 0.9% 10 ML Syringe FLUSH PRN (18:38)
[2022-12-28] MEDS ORDERED: Acetaminophen 500 MG Tab PO ONE (18:45)
[2022-12-28] MEDS ORDERED: Ketorolac 30 MG/ML SDV IVPUSH ONE (18:45)
[2022-12-28] MEDS ORDERED: Sodium Chloride 0.9% 1,000 ML IV STA (19:04)
[2022-12-28] MEDS ORDERED: cefTRIAXone 1 GM in Sodium Chloride 0.9% 50 ML IV ONE (19:05)
[2022-12-28 19:25] LABS: BASOPHILS PERCENT AUTO 0.1 % (0.0-1.5); HEMATOCRIT 37.8 % (36.0-46.0); HEMOGLOBIN 12.5 g/dL (12.0-16.0); LYMPHOCYTES ABSOLUTE AUTO 1.8 K/uL (0.6-2.4); LYMPHOCYTES PERCENT AUTO 10.8 % (16.0-40.0); MEAN CORPUSCULAR HEMOGLOBIN 28.4 pg (27.0-32.0); MEAN CORPUSCULAR HGB CONC 33.1 g/dL (31.0-37.0); MEAN CORPUSCULAR VOLUME 85.9 fL (80.0-98.0); MONOCYTES ABSOLUTE AUTO 1.8 K/uL (0.0-0.8); MONOCYTES PERCENT AUTO 11.1 % (0.0-15.0); NEUTROPHILS ABSOLUTE AUTO 12.8 K/uL (1.4-5.7); PLATELET COUNT,PLT 283 K/uL (150-400); WHITE BLOOD CELL COUNT,WBC 16.38 K/uL (4.0-11.0)
[2022-12-28 19:25] LABS: BILIRUBIN,URINE NEGATIVE (NEGATIVE); COLOR,URINE YELLOW; GLUCOSE,URINE NEGATIVE (NEGATIVE); KETONES,URINE TRACE mg/dL (NEGATIVE); LEUKOCYTE ESTERASE,URINE MODERATE (NEGATIVE); NITRITE,URINE POSITIVE (NEGATIVE); OCCULT BLOOD,URINE MODERATE (NEGATIVE); PH,URINE 5.5 (5.0-8.0); PROTEIN,URINE 30 mg/dL (NEGATIVE); UROBILINOGEN,URINE 0.2 EU/dL (<2.0)
[2022-12-28 19:58] LABS: A/G RATIO 0.7 (0.9-1.6); ALBUMIN 3.5 g/dL (3.4-5.0); BILIRUBIN TOTAL 0.5 mg/dL (0.2-1.0); CALCIUM 8.8 mg/dL (8.5-10.1); CARBON DIOXIDE,CO2 22.7 mmol/L (21.0-32.0); CREATININE 0.8 mg/dL (0.6-1.0); EST CRCL DRUG DOSING (CG) 93.37 mL/min; POTASSIUM,K 3.3 mmol/L (3.5-5.1); PROTEIN TOTAL,TP 8.6 g/dL (6.4-8.2)
[2022-12-28 19:58] LABS: APPEARANCE,URINE CLOUDY
[2022-12-28 19:59] LABS: BACTERIA,URINE 2+ (NEGATIVE); EPITHELIAL CELLS,URINE FEW (NONE-FEW); WBC,URINE TO NUMEROUS TO COUNT (0-5/HPF)
[2022-12-28 20:02] LABS: LACTIC ACID 1.2 mmol/L (0.4-2.0)
[2022-12-28] MEDS ORDERED: Phenazopyridine 200 MG Tab PO ONE (20:11)
[2022-12-28 20:33] VITALS: BP 110/58; PULSE 86
== END 2022-12-28 20:40 | disposition home or self-care (01) ==
LOC: MW.ED 18:09
DX: N30.00 Acute cystitis without hematuria (principal); E66.9 Obesity, unspecified; Z68.39 Body mass index [BMI] 39.0-39.9, adult
CPT/HCPCS: 36415; 80053; 81001; 81025; 83605; 85025; 87040; 87086; 87088; 87186; 93005; 96361; 96365; 96375; 99283; A9270; J0696; J1885; J3490; J7030; 87077; 93010; 99284